=== PATIENT | male | born 1945 ===

== ENCOUNTER → 2018-03-27 | Outpatient (CLI) | payer MEDICARE | END | disposition home or self-care (01) | LOC: LAB SHORT 08:54 → PLD 08:54 | DX: L72.0 Epidermal cyst (principal) | CPT/HCPCS: 88304 ==

== ENCOUNTER 2022-05-03 16:59 | Emergency (ER) | payer OTHER, MEDICARE ==
[~2022-05-03] VITALS: Ht 172.7 cm; Wt 67.6 kg
== END 2022-05-03 20:20 | disposition home or self-care (01) ==
LOC: ER 16:59
DX: R07.2 Precordial pain (principal); I38 Endocarditis, valve unspecified; V43.52XA Car driver injured in collision with other type car in traffic accident, initial encounter
CPT/HCPCS: 71046; 93005; 93010; 99284-25; A9270